=== PATIENT | male | born 1970 | race Two or more races ===

== ENCOUNTER 2022-04-01 20:39 | Inpatient (IN) ==
[2022-04-01 21:00] VITALS: BMI 23.8
--- NOTE | 2022-04-01 21:25 | DR.EXTPAIN ---
HPI Time seen Time Seen by Provider: 04/01/22 21:25 PCP Primary Care Physician: MADALYN HPI Comment HPI Comment: Hx obtained from daughter: 52 y/o with uncontrolled dm developed painful swelling and redness in left 4th toe on Thursday which has progressively worsened; he has not seen anyone for this and is not on medication for it; no fever, chills, n/v/d; he now has drainage from a "hole" in the side of the toe and the redness and swelling has spread into the foot Complaint/Symptoms Chief Complaint:: PT HAS DIABETIC ULCER ON 4TH TOE ON LT FOOT OOZING CLEAR BLOODY DRAINAGE. SWELLING AND REDNESS NOTED TO TOE AND THE AREA A ROUND IT COVID-19 Coronavirus risk:travel/contact w/high risk person: No Has patient experienced Coronavirus symptoms: No Source History Provided: Patient Mode of arrival Mode of Arrival: Ambulatory Timing Onset of Chief Complaint: 03/25/22 PMH PMH Past Medical History: Yes Past Medical History: Diabetes Past Surgical History: No Family History History of Family Medical Conditions: No Social History Does any household member use tobacco: No Alcohol Use: None Do you use any recreational Drugs:: No Lives With: Family Lives Where: Home Travel Risk Coronavirus risk:travel/contact w/high risk person: No Has patient experienced Coronavirus symptoms: No Infectious screening In the last 2 months have you had wt loss of >10#?: NO Have you had fever, night sweats or hemotysis?: No Have you traveled outside the country in the last 6 months?: No Isolation: Standard ROS Review of Systems Constitutional: No Symptoms Reported Eyes: No Symptoms Reported ENTM: No Symptoms Reported Respiratoy: No Symptoms Reported Cardiovascular: No Symptoms Reported Gastrointestinal/Abdominal: No Symptoms Reported Genitourinary: No Symptoms Reported Neurological: No Symptoms Reported Musculoskeletal: See HPI Integumentary: See HPI Hematologic/Lymphatic: No Symptoms Reported Endocrine: Other (sugars in the 350 range) Psychiatric: No Symptoms Reported PE Vital Signs Vitals: Temperature 99.4 F Pulse Rate 100 Respiratory Rate 18 Blood Pressure 112/58 O2 Sat by Pulse Oximetry 99 General Limitations: No Limitations General Appearance: Alert and In No Apparent Distress Head Head Exam: Normal Inspection Eyes Eye exam: Normal Appearance ENT ENT Exam: Normal Exam Neck Neck Exam: Normal Inspection Chest Chest Inspection: Normal Inspection Respiratory Respiratory Exam: Normal Lung Sounds Bilat Cardiovascular Cardiovascular Exam: Regular Rate and Normal Rhythm Abdominal Exam Abdominal Exam: Normal Inspection, Normal Bowel Sounds and Soft Extremities Extremities Exam: Normal Inspection Lower Extremities Foot/Toe Exam: Tenderness, Swelling, Ecchymosis, Deformity, Erythema and Other (lt fourth toe swollen, ecchymotic, tender with oozing from lateral mid toe, foot swollen/red, hot and tender midfoot to ankle) Back Back Exam: Normal Inspection Neurological Neurological Exam: Alert, Oriented X3 and CN II-XII Intact Psychiatric Psychiatric Exam: Normal Affect and Normal Mood Skin Skin Exam: Warm, Dry, Intact and Normal Color ROR Labs Reviewed Laboratory Results Reviewed?: Yes Result Diagrams: 04/01/22 21:45 04/01/22 21:45 Laboratory: WBC 16.3 X10^3/uL (3.6-10.0) H 04/01/22 21:45 RBC 4.05 X10^6/uL (4.7-6.0) L 04/01/22 21:45 Hgb 12.4 g/dL (13.5-18.0) L 04/01/22 21:45 Hct 35.6 % (42.0-54.0) L 04/01/22 21:45 MCV 87.7 fL (80.0-100.0) 04/01/22 21:45 MCH 30.6 pg (27.0-34.0) 04/01/22 21:45 MCHC 34.9 g/dL (33.0-35.0) 04/01/22 21:45 RDW 12.6 % (11.6-16.5) 04/01/22 21:45 Plt Count 172 X10^3/uL (150.0-450.0) 04/01/22 21:45 MPV 8.8 fL (7.4-11.0) 04/01/22 21:45 Neut % (Auto) 83.0 % (42.0-75.0) H 04/01/22 21:45 Lymph % (Auto) 8.5 % (21.0-51.0) L 04/01/22 21:45 [place] % (Auto) 8.2 % (0.0-13.0) 04/01/22 21:45 Eos % (Auto) 0.1 % (0.9-2.9) L 04/01/22 21:45 Baso % (Auto) 0.2 % (0.2-1.0) 04/01/22 21:45 Neut # (Auto) 13.5 x10^3/uL (2.2-4.8) H 04/01/22 21:45 Lymph # (Auto) 1.4 X10^3/uL (1.3-2.9) 04/01/22 21:45 [place] # (Auto) 1.3 x10^3/uL (0.3-0.8) H 04/01/22 21:45 Eos # (Auto) 0.0 x10^3/uL (0.0-0.2) 04/01/22 21:45 Baso # (Auto) 0.0 X10^3/uL (0.0-0.1) 04/01/22 21:45 Absolute Nucleated RBC 0.0 /100WBC 04/01/22 21:45 Sodium 131 mmol/L (136-145) L 04/01/22 21:45 Corrected Sodium 133 mmol/L (136-145) L 04/01/22 21:45 Potassium 4.0 mmol/L (3.5-5.1) 04/01/22 21:45 Chloride 95 mmol/L (98-107) L 04/01/22 21:45 Carbon Dioxide 27.2 mmol/L (21-32) 04/01/22 21:45 BUN 14 mg/dL (7-18) 04/01/22 21:45 Creatinine 1.13 mg/dL (0.70-1.30) 04/01/22 21:45 Est GFR (MDRD) Af Amer > 60 (>60) 04/01/22 21:45 Est GFR (MDRD) Non-Af > 60 (>60) 04/01/22 21:45 Glucose 166 mg/dL (65-99) H 04/01/22 21:45 Calcium 8.5 mg/dL (8.5-10.1) 04/01/22 21:45 Corrected Calcium TNP 04/01/22 21:45 Total Bilirubin 0.70 mg/dL (0.2-1.0) 04/01/22 21:45 AST 10 Units/L (15-37) L 04/01/22 21:45 ALT 13 Units/L (12-78) 04/01/22 21:45 Alkaline Phosphatase 81 Units/L (46-116) 04/01/22 21:45 Total Protein 8.6 g/dL (6.4-8.2) H 04/01/22 21:45 Albumin 3.6 g/dL (3.4-5.0) 04/01/22 21:45 Globulin 5.0 g/dL (2.5-4.5) H 04/01/22 21:45 Albumin/Globulin Ratio 0.7 Ratio (1.1-2.1) L 04/01/22 21:45 XRAY XRAY Interpreted by: Radiologist X-ray Results: lt foot xray: Subtle cortical bone destruction is seen involving the intra- articular base of the 4th middle phalanx best seen on the frontal view worrisome for osteomyelitis. Communications: I haverequested that the above findings be communicated to the referring physician/clinical team by the call accounting support specialist at the time I signed this report. Documentation of the time in which the call accounting support specialist communicated this information to the referring physician/clinical team has been detailed in the PACS system. Opioid Opioid Risk Tool Age (Sukh box if 16-45): No History of Preadolescent Sexual Abuse: No Total: 0 Total Score Risk Category: Low Risk Copyright: Lucas KHOURY predicting aberrant behaviors Discharge Plan Diagnosis Discharge Problem: Osteomyelitis of ankle or foot, left, acute, Type 2 diabetes mellitus, Diabetic foot ulcer associated with type 2 diabetes mellitus Discharge Plan Patient Disposition: ADMITTED INPATIENT Condition: Stable
[2022-04-01] MEDS ORDERED: VANCOMYCIN IV *PREMIX 1 G/200 ML BAG 1 G/200 ML PIGGYBACK IV ONE ×2 (21:36→21:46)
[2022-04-01 21:51] LABS: BASOPHILS % (AUTO) 0.2 % (0.2-1.0); EOSINOPHILS % (AUTO) 0.1 % (0.9-2.9); HEMATOCRIT 35.6 % (42.0-54.0); HEMOGLOBIN 12.4 g/dL (13.5-18.0); LYMPHOCYTES # (AUTO) 1.4 X10^3/uL (1.3-2.9); LYMPHOCYTES % (AUTO) 8.5 % (21.0-51.0); MEAN CORPUSCULAR HEMOGLOBIN 30.6 pg (27.0-34.0); MEAN CORPUSCULAR HGB CONC 34.9 g/dL (33.0-35.0); MEAN CORPUSCULAR VOLUME 87.7 fL (80.0-100.0); MEAN PLATELET VOLUME 8.8 fL (7.4-11.0); MONOCYTES # (AUTO) 1.3 x10^3/uL (0.3-0.8); MONOCYTES % (AUTO) 8.2 % (0.0-13.0); NEUTROPHILS # (AUTO) 13.5 x10^3/uL (2.2-4.8); RED BLOOD COUNT 4.05 X10^6/uL (4.7-6.0); RED CELL DISTRIBUTION WIDTH 12.6 % (11.6-16.5); WHITE BLOOD COUNT 16.3 X10^3/uL (3.6-10.0)
[2022-04-01 22:03] LABS: ALANINE AMINOTRANSFERASE 13 Units/L (12-78); ALBUMIN 3.6 g/dL (3.4-5.0); ALKALINE PHOSPHATASE 81 Units/L (46-116); ASPARTATE AMINO TRANSFERASE 10 Units/L (15-37); BLOOD UREA NITROGEN 14 mg/dL (7-18); CALCIUM 8.5 mg/dL (8.5-10.1); CARBON DIOXIDE 27.2 mmol/L (21-32); CHLORIDE 95 mmol/L (98-107); COR NA(FOR HYPERGLY) 133 mmol/L (136-145); CREATININE 1.13 mg/dL (0.70-1.30); SODIUM 131 mmol/L (136-145); TOTAL PROTEIN 8.6 g/dL (6.4-8.2); eGFR NON BLACK RACES > 60 (>60)
--- NOTE | 2022-04-01 23:24 | RAD ---
STUDY: FOOT, LEFTCOMPARISON: NoneHISTORY: PT HAS DIABETIC ULCER ON 4TH TOE ON LT FOOT OOZING CLEAR BLOODY DRAINAGE. SWELLING AND REDNESS NOTED TO TOE AND THE AREA A ROUND ITFINDINGS:There is no evidence of fracture or joint dislocation.There is no evidence of an embedded radiopaque foreign body.Subtle cortical bone destruction is seen involving the intra-articular base of the 4th middle phalanx best seen on the frontal view worrisome for osteomyelitis.IMPRESSION:Subtle cortical bone destruction is seen involving the intra-articular base of the 4th middle phalanx best seen on the frontal view worrisome for osteomyelitis.Communications: I have requested that the above findings be communicated to the referring physician/clinical team by the call network desktop support specialist at the time I signed this report. Documentation of the time in which the call network desktop support specialist communicated this information to the referring physician/clinical team has been detailed in the PACS system.Electronically signed by: Kelvin Gilmore (Apr 01, 2022 23:22:47)
[2022-04-01] MEDS ORDERED: NovoLIN R (or HumuLIN R) SUBCUT PRN (23:38)
[2022-04-01] MEDS ORDERED: ZOFRAN SYRUP 4 MG UDC PO PRN (23:38)
[2022-04-01] MEDS ORDERED: PHARMACY CONSULT - VANCOMYCIN XX SCH (23:45)
[2022-04-02] MEDS: ZOSYN VIAL 3.375 GRAMS 3.375 G in NS 100 ML IV 100 ML IV SCH ×4 (00:40→21:26)
[2022-04-02] MEDS: NS 1,000 ML IV 1,000 ML IV SCH ×2 (00:40→13:09)
[2022-04-02] MEDS: TYLENOL 500 MG TAB EXTRA STRENGTH PO PRN ×2 (01:09→23:35)
[2022-04-02 06:18] LABS: BASOPHILS # (AUTO) 0.1 X10^3/uL (0.0-0.1); BASOPHILS % (AUTO) 0.4 % (0.2-1.0); EOSINOPHILS # (AUTO) 0.1 x10^3/uL (0.0-0.2); EOSINOPHILS % (AUTO) 0.6 % (0.9-2.9); HEMATOCRIT 33.8 % (42.0-54.0); HEMOGLOBIN 11.8 g/dL (13.5-18.0); LYMPHOCYTES # (AUTO) 1.9 X10^3/uL (1.3-2.9); MEAN CORPUSCULAR HEMOGLOBIN 30.5 pg (27.0-34.0); MEAN CORPUSCULAR VOLUME 87.3 fL (80.0-100.0); MEAN PLATELET VOLUME 9.5 fL (7.4-11.0); MONOCYTES # (AUTO) 1.4 x10^3/uL (0.3-0.8); MONOCYTES % (AUTO) 9.3 % (0.0-13.0); NEUTROPHILS # (AUTO) 11.1 x10^3/uL (2.2-4.8); NEUTROPHILS % (AUTO) 76.7 % (42.0-75.0); RED BLOOD COUNT 3.87 X10^6/uL (4.7-6.0); RED CELL DISTRIBUTION WIDTH 12.7 % (11.6-16.5); WHITE BLOOD COUNT 14.5 X10^3/uL (3.6-10.0)
[2022-04-02 06:26] LABS: ALANINE AMINOTRANSFERASE 12 Units/L (12-78); ALBUMIN 2.9 g/dL (3.4-5.0); ALKALINE PHOSPHATASE 72 Units/L (46-116); ASPARTATE AMINO TRANSFERASE 8 Units/L (15-37); BLOOD UREA NITROGEN 13 mg/dL (7-18); CALCIUM 7.9 mg/dL (8.5-10.1); CARBON DIOXIDE 28.1 mmol/L (21-32); CHLORIDE 100 mmol/L (98-107); COR CA(FOR HYPOALB) 8.8 mg/dL (8.5-10.1); CREATININE 1.12 mg/dL (0.70-1.30); SODIUM 134 mmol/L (136-145); TOTAL PROTEIN 7.5 g/dL (6.4-8.2); eGFR NON BLACK RACES > 60 (>60)
[2022-04-02] MEDS: VANCOMYCIN IV *PREMIX 1 G/200 ML BAG 1 G/200 ML PIGGYBACK IV SCH ×2 (08:59→20:15)
[2022-04-02] MEDS: ACTOS PO SCH (09:31)
[2022-04-02] MEDS: GLUCOPHAGE XR 24-HR PO SCH ×2 (09:32→20:14)
[2022-04-02] MEDS ORDERED: LR 1,000 ML IV 1,000 ML IV ONE (10:35)
[2022-04-02] MEDS ORDERED: ANCEF VIAL 1 GRAM ONE (10:35)
[2022-04-02] MEDS ORDERED: NS 100 ML IV 100 ML ONE (10:36)
[2022-04-02] MEDS ORDERED: BETADINE SOLN ONE (11:49)
[2022-04-02] MEDS ORDERED: MARCAINE 0.5% ONE (11:49)
[2022-04-02] MEDS ORDERED: VERSED ONE (12:13)
[2022-04-02] MEDS ORDERED: DIPRIVAN VIAL 20 ML ONE (12:13)
[2022-04-02] MEDS ORDERED: FENTANYL VIAL INJ 100 mcg ONE (12:13)
[2022-04-02] MEDS: PATIENT'S HOME MEDICATION PO SCH (13:09)
--- NOTE | 2022-04-02 19:20 | DR.CONSULT ---
CONSULT Consultation for Day of: Date: 04/02/22 Chief Complaint Chief Complaint: Left fourth toe wound with osteomyelitis Allergies Allergies Allergy/AdvReac Type Severity Reaction Status Date / Time No Known Drug Allergies Allergy Verified 04/01/22 20:48 History of Present Illness History of Present Illness: This is a 52 year old male who presented to the hospital for his left fourth digit being discolored and swollen. Patient does not speak Estonian very well, however, his daughter is bedside and she translated. Significant history of diabetes, however, he does not know his last A1c or when it was checked. Patient states on Thursday he noticed his left fourth digit had excess skin and was peeling. He states he worked over the weekend in boots and when he removed his boots he noticed his toe was purple and swollen. He states he received some local wound care with his family and ultimately decided to report to the emergency room. He denies any pain at time of exam. He denies any fevers, chills, nausea, vomiting, shortness of breath, or chest pain at time of exam. Past Medical History Past Medical History: Diabetes Family History Family Medical History: Diabetes Mellitus and Hypertension Social History Does patient currently use any type of tobacco product: No Have you used tobacco products in the last 12 months: No Type of Tobacco Use: None Does any household member use tobacco: No Alcohol Use: None Drug Use: None Medications Home Medications: No Known Drug Allergies Allergy (Verified 04/01/22 20:48) CONTINUE taking the following medications empagliflozin 25 mg tablet (Jardiance) 25 mg PO QAM 04/01/22 [History] glipizide 10 mg tablet 20 mg PO BID 04/01/22 [History] metformin 850 mg tablet 850 mg PO TID 04/01/22 [History] Physical Exam Vital Signs: Temperature 97.6 F Pulse Rate [Apical] 75 Pulse Rate 78 Respiratory Rate 18 Blood Pressure [Right Arm] 104/64 Blood Pressure 125/75 O2 Sat by Pulse Oximetry 97 Cardiovascular: Other (DP/PT pulses are palpable. CFT is maintained to all digits except the L 4th digit where it is sluggish. Decreased pedal hair bilaterally. +1 Pitting edema to L LE. No varicosities noted.) Skin: Wound (Left fourth digit has wounds on medial and lateral aspect. Both are approximately the size of a pea and located at the base of the digit within the interspace. Foul odor coming from toe. Purulence is noted and local signs of infection.) and Other (Purple discoloration of digit to the level of the MPJ. ) Musculoskeletal: Right, Foot (Neuro: Light touch and protective sensation are decreased to bilateral lower extremity - verified via ipswich touch test = 1/4 bilaterally. ), Deformity (Contracture of digits 2-5 bilaterally at the IPJs and MPJ.) and Sensory Deficit Plan (1) Osteomyelitis of ankle or foot, left, acute: Status: Acute Plan: Patient evaluated and chart reviewed. Labs, XRs and clinical exam demonstrate obvious osteomyelitis of the left fourth digit. Plan to take to OR for left fourth digit amputation today at noon. NPO and treatment consent placed. NWB to left LE following surgery until soft tissue heals. Dispense post op shoe, to be worn at all times while out of bed. Elevate LE when able to reduce swelling. Abx per IM team. Recommend empiric treatment at this time. We will obtain deep culture during surgery today and can narrow spectrum as needed. Patient has adequate perfusion clinically, will not order NIVS at this time. Consider if there is delayed healing or signs of ischemia. (2) Type 2 diabetes mellitus: Status: Acute Plan: Ordered HgbA1c, verbal order to nursing team on floor. (3) Diabetic foot ulcer associated with type 2 diabetes mellitus: Status: Acute Plan: Charting was delayed today secondary to [employer] being down this morning. Will continue to follow.
[2022-04-02] MEDS: SNACK - Diabetic Appropriate PO SCH (20:16)
--- NOTE | 2022-04-02 20:39 | DR.OPNOTE ---
OP NOTE Pre-Op Diagnosis: 1. Left fourth digit infection & open wound 2. Osteomyelitis 3. DM II w/ PN Post-Op Diagnosis: Same Procedure Date Date Of Procedure: 04/02/22 Procedure: Procedures: 1. Left fourth digit amputation Indications: This is a 52 year old male who I was consulted on today by Dr. Greene for a swollen and discolored left fourth digit with suspected bone infection. Upon examination he did have a severely swollen left fourth digit that showed signs of dysvascularity including purple discoloration and a delayed capillary refill time. There was wounds located on the medial and lateral side of the digit near the interspaces that did exude a white, thickened fluid. This probed down to bone which appeared to be the proximal phalanx. There was a foul smelling odor to the drainage as well. X-rays did reveal erosions of the osseous structures within the fourth digit. Labs were also suggestive of infectious process with increased WBC. With all of this in mind, I did discuss surgical resection of the infected bone and soft tissue with the patient and his daughter. I did not give any guarantees and explained the possible risks of surgery. I did also discuss alternatives to surgery, however I do not believe these would have a good prognosis at this time. He and his daughter both gave consent to perform the procedure today. Details of Procedure: Following satisfactory pre-op evaluation the patient was brought to the OR and placed on the OR table in the supine position. An appropriate amount of sedation was then administered by anesthesia team. Following sedation, a well padded pneumatic tourniquet was placed on the left ankle and set to 250mHg. This was not inflated throughout the case. Approximately 10ccs of 0.5% Marcaine plain was then injected proximal to the metatarsal head of the left fourth digit in an H-block fashion. The foot was then prepped and draped in the usual sterile manner and lowered onto the surgical field. Attention was then directed to the left fourth digit where a sausage digit was noted with wounds medially and laterally at the base of the digit that exuded a foul smelling drainage. A towel clamp was used to mathematical statistician the base of the digit allowing for manipulation of the toe. Utilizing a 15 blade the skin was incised around the base of the fourth digit over the proximal aspect of the proximal phalanx in a racquet style incision. This incision was full thickness and down to bone. The 15 blade was utilized to create full thickness flaps medially and laterally off the base of the proximal phalanx. This was continued around the base of the proximal phalanx until the metatarsophalangeal joint was encounter. The bone in this area was brittle and crumply, consistent with osteomyelitis. The joint capsule was then transected and the toe was disarticulated at the metatarsophalangeal joint. This was removed from the field and sent for pathological examination. I then took prelavage deep cultures from around the base of the metatarsal head. The surgical site was then flushed with copious amounts of Prontosan and I then reinspected the area for any further non-viable tissue. Utilizing a rongeur I resected any remaining discolored and dysvascular tissue from the wound bed down to the level of bone. Once the remaining soft tissue appeared healthy and viable, I then used a [place] elevator to probe in all directions within the wound bed to identify and tracking of the infection. A track was identified along the extensor tendons dorsally on the metatarsal head. I inserted a hemostat into this area and opened it to decompress the area. I then used a 15 blade to cut over the hemostat and open the area which measured approximately 3 cm. Next, I manually compressed proximally at the level of the ankle and, moving distally, attempted to exude any further purulent drainage fr om this area. No further purulence was noted, only sanguineous drainage remained. Once I was satisfied I had resected all infected soft tissue and bone I again lavaged the entire surgical site copiously with Prontosan. I then took a second set of cultures from deep within the wound as postlavage cultures. These are to be used to narrow empiric antibiotic therapy as needed. The surgical site was then checked for large or pulsatile bleeders, there were none at this time. I then turned my attention towards closure of the wound. The medial and lateral skin flaps were brought together with good apposition and adequate coverage was noted, however there was an approximately grape-sized open space where the base of the proximal phalanx used to reside just distal to the metatarsal head. It was at this time I decided to pack the wound with 0.25inch Iodoform following partial closure. The skin was then reapproximated utilizing 4-0 nylon suture by simple interrupted stitch, but I did leave a small area centrally within the incision open where I could pack with Iodoform. I then gently inserted the Iodoform into the wound until I met resistance. The end was then cut approximately 2 inches above this and left out of the wound to later be removed. A dressing was then applied consisting of xeroform, 4x4 gauze, webrill, and a lightly wrapped ROSELYN wrap. The patient tolerated anesthesia and the procedure well and was transported back to his room on the floor with vital signs stable and vascular status unchanged to left foot. Orders: Resume all preoperative meds, orders, and diet Dispense surgical shoe - to be worn at all times while out of bed. weight bearing to the left heel only while in surgical shoe Elevate left foot, No ICE Keep dressing CDI Contact me if patient has breakthrough pain that is not addressed by his current pain regimen Charting was delayed today due to [employer] being down. I did a handwritten immediate post operative note and placed in chart. Type of Anesthesia: Local (MAC sedation with local anesthesia) Findings: Left fourth digit is dusky and edematous with medial and lateral wounds nearing the MPJ. There is a foul odor and milky white pus drainage upon expression. The phalanges of the fourth digit are brittle and crumple upon dissection which I believe to be secondary to osteomyelitis. Following resection of the digit there was tracking along the dorsal extensor tendons, however, there was no purulent drainage noted here. I did open this compartment and washed it out. Remaining tissue appear healthy and viable. Good apposition of skin edges noted with minimal tension. The surgical site was then closed with an area centrally that was packed with quarter inch iodoform packing. Specimen/Pathology: Left fourth digit was sent for pathology and microbiological examination. Pre and post lavage deep cultures were also obtained. EBL: 15cc Drains/Tubes Comment: .25inch Iodoform packing in wound bed with tail left outside of incision centrally Hardware: None Cultures: Pre and post lavage deep cultures taken Complications:: None Needle/Sponge Count:: Correct Disposition/Condition: Pt. tolerated procedure without difficulty. Patient was returned to his room on the floor following procedure.
[2022-04-02] MEDS ORDERED: MORPHINE SULFATE INJ 2 MG INJ IVP PRN (21:21)
[2022-04-02] MEDS ORDERED: NORCO 5/325 MG TAB PO PRN (21:21)
[2022-04-02] MEDS: POST OP SHOE TOP SCH (22:38)
[2022-04-03] MEDS: NS 1,000 ML IV 1,000 ML IV SCH ×3 (02:00→14:07)
[2022-04-03] MEDS: ZOSYN VIAL 3.375 GRAMS 3.375 G in NS 100 ML IV 100 ML IV SCH ×3 (05:34→22:52)
[2022-04-03 06:18] LABS: BASOPHILS % (AUTO) 0.3 % (0.2-1.0); EOSINOPHILS # (AUTO) 0.1 x10^3/uL (0.0-0.2); EOSINOPHILS % (AUTO) 1.3 % (0.9-2.9); HEMATOCRIT 33.5 % (42.0-54.0); HEMOGLOBIN 11.6 g/dL (13.5-18.0); LYMPHOCYTES # (AUTO) 1.5 X10^3/uL (1.3-2.9); LYMPHOCYTES % (AUTO) 13.5 % (21.0-51.0); MEAN CORPUSCULAR HEMOGLOBIN 30.4 pg (27.0-34.0); MEAN CORPUSCULAR HGB CONC 34.6 g/dL (33.0-35.0); MEAN CORPUSCULAR VOLUME 87.7 fL (80.0-100.0); MEAN PLATELET VOLUME 9.1 fL (7.4-11.0); MONOCYTES # (AUTO) 0.8 x10^3/uL (0.3-0.8); MONOCYTES % (AUTO) 7.4 % (0.0-13.0); NEUTROPHILS # (AUTO) 8.8 x10^3/uL (2.2-4.8); NEUTROPHILS % (AUTO) 77.5 % (42.0-75.0); RED BLOOD COUNT 3.81 X10^6/uL (4.7-6.0); RED CELL DISTRIBUTION WIDTH 12.9 % (11.6-16.5); WHITE BLOOD COUNT 11.3 X10^3/uL (3.6-10.0)
[2022-04-03 06:20] LABS: ALANINE AMINOTRANSFERASE 10 Units/L (12-78); ALBUMIN 2.5 g/dL (3.4-5.0); ALKALINE PHOSPHATASE 66 Units/L (46-116); ASPARTATE AMINO TRANSFERASE 9 Units/L (15-37); BLOOD UREA NITROGEN 18 mg/dL (7-18); CALCIUM 7.6 mg/dL (8.5-10.1); CARBON DIOXIDE 23.1 mmol/L (21-32); CHLORIDE 104 mmol/L (98-107); COR CA(FOR HYPOALB) 8.8 mg/dL (8.5-10.1); CREATININE 0.94 mg/dL (0.70-1.30); SODIUM 136 mmol/L (136-145); eGFR NON BLACK RACES > 60 (>60)
[2022-04-03 06:30] LABS: HEMOGLOBIN A1C 8.4 %
[2022-04-03] MEDS ORDERED: PHARMACY COMMENT IV ONE (08:30)
[2022-04-03] MEDS: PATIENT'S HOME MEDICATION PO SCH (08:30)
[2022-04-03] MEDS: GLUCOPHAGE XR 24-HR PO SCH ×2 (08:33→21:34)
[2022-04-03] MEDS: POST OP SHOE TOP SCH (08:33)
[2022-04-03] MEDS: ACTOS PO SCH (08:33)
[2022-04-03 14:50] LABS: CREATININE 0.98 mg/dL (0.70-1.30)
[2022-04-03 14:51] LABS: VANCOMYCIN,TROUGH 8.1 ug/mL (15-20)
[2022-04-03] MEDS: VANCOMYCIN IV *PREMIX 1 G/200 ML BAG 1 G/200 ML PIGGYBACK IV SCH (14:56)
[2022-04-03 21:07] LABS: CREATININE 1.02 mg/dL (0.70-1.30); VANCOMYCIN,TROUGH 11.9 ug/mL (15-20)
[2022-04-03] MEDS: SNACK - Diabetic Appropriate PO SCH (21:33)
[2022-04-03] MEDS: VANCOMYCIN IV *PREMIX 1.25 G/250 ML BAG 1.25 G/250 ML PIGGYBACK IV SCH (21:35)
[2022-04-04] MEDS: NS 1,000 ML IV 1,000 ML IV SCH ×2 (04:32→06:32)
[2022-04-04] MEDS: ZOSYN VIAL 3.375 GRAMS 3.375 G in NS 100 ML IV 100 ML IV SCH (05:13)
[2022-04-04 06:07] LABS: ALANINE AMINOTRANSFERASE 9 Units/L (12-78); ALBUMIN 2.5 g/dL (3.4-5.0); ALKALINE PHOSPHATASE 65 Units/L (46-116); ASPARTATE AMINO TRANSFERASE 9 Units/L (15-37); BLOOD UREA NITROGEN 10 mg/dL (7-18); CALCIUM 7.8 mg/dL (8.5-10.1); CARBON DIOXIDE 24.5 mmol/L (21-32); CHLORIDE 104 mmol/L (98-107); CREATININE 0.95 mg/dL (0.70-1.30); SODIUM 135 mmol/L (136-145); TOTAL PROTEIN 7.2 g/dL (6.4-8.2); eGFR NON BLACK RACES > 60 (>60)
[2022-04-04 06:26] LABS: BASOPHILS % (AUTO) 0.5 % (0.2-1.0); EOSINOPHILS # (AUTO) 0.3 x10^3/uL (0.0-0.2); EOSINOPHILS % (AUTO) 3.2 % (0.9-2.9); HEMATOCRIT 32.3 % (42.0-54.0); HEMOGLOBIN 11.5 g/dL (13.5-18.0); LYMPHOCYTES # (AUTO) 1.6 X10^3/uL (1.3-2.9); LYMPHOCYTES % (AUTO) 18.3 % (21.0-51.0); MEAN CORPUSCULAR HEMOGLOBIN 31.1 pg (27.0-34.0); MEAN CORPUSCULAR HGB CONC 35.6 g/dL (33.0-35.0); MEAN CORPUSCULAR VOLUME 87.1 fL (80.0-100.0); MEAN PLATELET VOLUME 8.8 fL (7.4-11.0); MONOCYTES # (AUTO) 0.5 x10^3/uL (0.3-0.8); MONOCYTES % (AUTO) 6.1 % (0.0-13.0); NEUTROPHILS # (AUTO) 6.2 x10^3/uL (2.2-4.8); NEUTROPHILS % (AUTO) 71.9 % (42.0-75.0); RED BLOOD COUNT 3.71 X10^6/uL (4.7-6.0); RED CELL DISTRIBUTION WIDTH 12.8 % (11.6-16.5); WHITE BLOOD COUNT 8.7 X10^3/uL (3.6-10.0)
[2022-04-04] MEDS ORDERED: K-DUR TAB 20 MEQ PO PRN (07:32)
[2022-04-04] MEDS ORDERED: POTASSIUM CHL 60 MEQ/NS 0.45% 500 ML IV PRN (07:32)
[2022-04-04] MEDS ORDERED: KLOR-CON PO PRN (07:32)
[2022-04-04] MEDS ORDERED: POTASSIUM CHL 40 MEQ/NS 0.45% 500 ML IV PRN (07:32)
[2022-04-04] MEDS ORDERED: MICRO K EXTEN CAP 10 MEQ PO PRN (07:32)
[2022-04-04] MEDS ORDERED: K-RIDER 10 MEQ/NS 100 ML 10 MEQ/100 ML BAG IV PRN (07:32)
[2022-04-04] MEDS ORDERED: POTASSIUM CHLORIDE LIQ 20 MEQ UDC PO PRN (07:32)
[2022-04-04] MEDS: POST OP SHOE TOP SCH (08:55)
[2022-04-04] MEDS: VANCOMYCIN IV *PREMIX 1.25 G/250 ML BAG 1.25 G/250 ML PIGGYBACK IV SCH (08:55)
[2022-04-04] MEDS: ACTOS PO SCH (10:39)
[2022-04-04] MEDS: GLUCOPHAGE XR 24-HR PO SCH (10:40)
[2022-04-04] MEDS: PATIENT'S HOME MEDICATION PO SCH (10:40)
[2022-04-04 14:07] VITALS: BP 122/72
[2022-04-05] MEDS ORDERED: PHARMACY COMMENT IV ONE (08:30)
== END 2022-04-04 14:07 | disposition home or self-care (01) | DRG 504 ==
LOC: ER 20:39 → MED/SURG 20:39 → OBSVTOIN 23:38 → MED/SURG 04-02 00:05
PROVIDERS: ADMIT Obstetrics & Gynecology Obstetrics; ATTEND Obstetrics & Gynecology Obstetrics
DX: B96.29 Other Escherichia coli [E. coli] as the cause of diseases classified elsewhere; E11.621 Type 2 diabetes mellitus with foot ulcer; M86.172 Other acute osteomyelitis, left ankle and foot; L03.032 Cellulitis of left toe; E11.65 Type 2 diabetes mellitus with hyperglycemia; Z20.822 Contact with and (suspected) exposure to COVID-19; I10 Essential (primary) hypertension; L97.528 Non-pressure chronic ulcer of other part of left foot with other specified severity; B96.89 Other specified bacterial agents as the cause of diseases classified elsewhere